=== PATIENT | male | born 2000 | race Two or more races ===

== ENCOUNTER 2020-09-07 13:28 | Emergency (ER) | payer OTHER ==
[~2020-09-07] VITALS: Ht 167.6 cm; Wt 68.0 kg
[2020-09-07 13:31] VITALS: BP 133/81
== END 2020-09-07 15:47 | disposition home or self-care (01) ==
LOC: ER 13:28
DX: R07.89 Other chest pain (principal); F12.10 Cannabis abuse, uncomplicated; J45.909 Unspecified asthma, uncomplicated
CPT/HCPCS: 71045-TC